=== PATIENT | female | born 1955 | race African-American/Black ===

== ENCOUNTER 2018-10-04 21:53 | Emergency (ER) | payer MEDICAID ==
[~2018-10-04] VITALS: Ht 167.6 cm; Wt 73.0 kg
[2018-10-05] MEDS ORDERED: BACITRACIN ZINC OINT UDPKT TOP ONE
[2018-10-05] MEDS ORDERED: LIDOCAINE HCL/PF 1% 10 MG/ML 5ML VIAL IJ ONE
[2018-10-05] MEDS ORDERED: ACETAMINOPHEN 325MG TABLET PO ONE (01:00)
[2018-10-05 03:52] VITALS: BP 138/78
== END 2018-10-05 04:06 | disposition home or self-care (01) ==
LOC: ER 23:00
DX: S01.81XA Laceration without foreign body of other part of head, initial encounter (principal); E11.9 Type 2 diabetes mellitus without complications; Z88.6 Allergy status to analgesic agent; W01.0XXA Fall on same level from slipping, tripping and stumbling without subsequent striking against object, initial encounter; Y93.89 Activity, other specified; Y92.018 Other place in single-family (private) house as the place of occurrence of the external cause
CPT/HCPCS: 12013; 70450; 73552; 82962; 99284; J3490; Z7610

== ENCOUNTER 2018-10-09 18:21 | Emergency (ER) | payer MEDICAID ==
[~2018-10-09] VITALS: Ht 149.9 cm; Wt 62.0 kg
[2018-10-09 20:33] VITALS: BP 138/85
== END 2018-10-09 20:34 | disposition home or self-care (01) ==
LOC: ER 19:00
DX: Z48.02 Encounter for removal of sutures (principal); M79.605 Pain in left leg; I10 Essential (primary) hypertension; Z91.81 History of falling
CPT/HCPCS: 99282